=== PATIENT | female | born 1955 | race African-American/Black ===

== ENCOUNTER 2018-08-15 10:51 | Emergency (ER) | payer OTHER ==
[2018-08-15 11:02] VITALS: BP 117/79; PULSE 100; TEMP 97.8; BMI 32.8
--- NOTE | 2018-08-15 11:16 | PDOC ---
History of Present Illness - General Chief Complaint: Injury Stated Complaint: PAIN Time Seen by Provider: 08/15/18 11:04 History Source: Patient Exam Limitations: No Limitations - History of Present Illness Initial Comments: 08/15/18 11:09 62 yr female history of DM, HTN, defib, CHF slipped on water and fell in the laundry room in her building on wet floor hit her left hip and thigh on table then fell. no head injury denies dizzyness. c/o pain to left knee and groin , pt is able to stand and walk with some distress. Occurred: reports: just prior to arrival Severity: reports: mild Past History - Past Medical History Allergies/Adverse Reactions: Allergies Allergy/AdvReac Type Severity Reaction Status Date / Time acetaminophen [From Percocet] Allergy Intermediate rash,swelli Verified 10:57 ng naproxen sodium [From Aleve] Allergy Intermediate Swelling Verified 08/15/18 10: 57 oxycodone HCl [From Percocet] Allergy Intermediate rash,swelli Verified 10:57 ng aspirin Allergy Mild Vomiting Verified 08/15/18 10:57 latex AdvReac Intermediate Rash Verified 08/15/18 10:57 peanuts Allergy Severe throat Uncoded 08/15/18 10:57 closes Home Medications: Ambulatory Orders Amlodipine Besylate [Norvasc] 10 mg PO DAILY 10/24/11 Cozaar 50 PO DAILY 10/24/11 Janumet 50-1,000 mg Tablet PO BID 10/24/11 Metoprolol Succinate [Toprol-XL] 100 mg PO DAILY 10/24/11 Amlodipine Besylate [Norvasc -] 10 mg PO DAILY #0 tablet 10/26/11 Losartan Potassium [Cozaar] 50 mg PO DAILY #0 tablet 10/26/11 Metformin HCl [Glucophage] 1,000 mg PO BID@0700,1630 #0 tablet 10/26/11 Metoprolol Tartrate [Lopressor -] 100 mg PO DAILY #0 tablet 10/26/11 Sitagliptin Phosphate [Januvia] 50 mg PO BID@0700,1630 #0 tablet 10/26/11 Cyclobenzaprine HCl [Flexeril -] 5 mg PO TID PRN #21 tablet 08/15/18 Anemia: No Asthma: No Cancer: Yes (ENDOMETRIAL 08/2012) Cardiac Disorders: No CVA: No COPD: No CHF: No Dementia: No Diabetes: Yes GI Disorders: No Disorders: No HTN: Yes Hypercholesterolemia: Yes Liver Disease: No Seizures: No Thyroid Disease: No - Surgical History Abdominal Surgery: No Appendectomy: No Cardiac Surgery: Yes (AICD 02/05) Cholecystectomy: Yes (1999) Lung Surgery: No Neurologic Surgery: No Orthopedic Surgery: Yes (ARTHROSCOPY RT KNEE 2008) - Suicide/Smoking/Psychosocial Hx Smoking History: Never smoked Hx Alcohol Use: No Drug/Substance Use Hx: No Substance Use Type: None Hx Substance Use Treatment: No *Physical Exam - Vital Signs Last Vital Signs Temp Pulse Resp BP Pulse Ox 97.8 F 100 H 22 H 117/79 08/15/18 11:00 08/15/18 11:00 08/15/18 11:00 08/15/18 11:00 - Physical Exam General Appearance: Yes: Nourished, Appropriately Dressed HEENT: positive: EOMI, KASEY Neck: positive: Supple. negative: Tender Respiratory/Chest: positive: Lungs Clear, Normal Breath Sounds Cardiovascular: positive: Regular Rhythm, Regular Rate Gastrointestinal/Abdominal: positive: Normal Bowel Sounds, Soft. 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 intact, Fully Oriented, Alert, Normal Mood/ Affect, Normal Response, Motor Strength 5/5, Finger to Nose (intact ) ED Treatment Course - RADIOLOGY Radiology Studies Ordered: Category Date Time Status HIP & PELVIS-LEFT [RAD] Stat Radiology 08/15/18 11:09 Ordered KNEE 3 POS-LEFT [RAD] Stat Radiology 08/15/18 11:09 Ordered Medical Decision Making - Medical Decision Making 08/15/18 11:11 cc: slip and fall no head trauma will get xray of left knee and left hip pt has FROM of the knee and hip with minimal pain *DC/Admit/Observation/Transfer Diagnosis at time of Disposition: Hip pain, left Left knee sprain Qualifiers: Encounter type: initial encounter Involved ligament of knee: other ligament Qualified Code(s): S83.8X2A - Sprain of other specified parts of left knee, initial encounter - Discharge Dispostion Disposition: HOME Condition at time of disposition: Good - Prescriptions Prescriptions: Cyclobenzaprine HCl [Flexeril -] 5 mg PO TID PRN #21 tablet PRN Reason: Muscle Spasms - Referrals - Patient Instructions Printed Discharge Instructions: How to Prevent Falls Additional Instructions: apply ice to the areas of pain every 2hrs for 20 minutes for the next 2 days while awake take tylenol as directed for pain take flexeril the muscle relaxant as needed for any spasm follow with your doctor tomorrow for follow up Return to ER if worse - Post Discharge Activity
== END 2018-08-15 12:11 | disposition home or self-care (01) ==
LOC: JERFT 10:51
DX: S83.8X2A Sprain of other specified parts of left knee, initial encounter (principal); I11.0 Hypertensive heart disease with heart failure; I50.9 Heart failure, unspecified; E11.9 Type 2 diabetes mellitus without complications; Z79.84 Long term (current) use of oral hypoglycemic drugs; Z95.810 Presence of automatic (implantable) cardiac defibrillator; W01.0XXA Fall on same level from slipping, tripping and stumbling without subsequent striking against object, initial encounter; Y93.89 Activity, other specified; Y92.038 Other place in apartment as the place of occurrence of the external cause; Y99.8 Other external cause status
CPT/HCPCS: 73523-TC-FY; 73562-TC-LT-FY; 99281-25